=== PATIENT | female | born 1980 | race Native Hawaiian/Other Pacific Islander ===

== ENCOUNTER 2016-12-24 12:28 | Emergency (ER) | payer OTHER ==
[2016-12-24 13:52] VITALS: BP 110/69; PULSE 60; RESP 18; TEMP 97.5
--- NOTE | 2016-12-24 15:28 | ED ---
General Adult HPI - General Chief complaint: Headache Stated complaint: Headache, Facial Numbness Time Seen by Provider: 12/24/16 15:01 Source: patient, RN notes reviewed Mode of arrival: ambulatory Limitations: no limitations - History of Present Illness Initial comments: This is a 36-year-old female presents with a right-sided headache 7 days. Patient states for the entire seven-day she has been feeling a tingling sensation of the right side of her face and to the right arm and fingertips. Patient states this is not the worst headache of her life but she has not had paresthesias before. Patient denies any photophobia or eye pain but states there is a feeling of pressure in the right side face. Patient denies any fever /chills, congestion, otalgia or sore throat. Patient denies any visual changes. Patient also complaint of left-sided arm pain that has been going on for 3 days. Patient denies any injury to the left arm. Patient admits to some mild intermittent nausea. Patient states she has tried several [id number] medications but nothing has worked. Patient does not want any pain medication in the EC today. Patient denies any recent fever, chills, shortness breath, chest pain, abdominal pain, vomiting/diarrhea, back pain, numbness, weakness, dysphasia, dysphagia, hematuria, or any other complaints. - Related Data Home Medications Medication Instructions Recorded Confirmed No Known Home Medications [No 04/03/15 04/03/15 Known Home Medications] Allergies Allergy/AdvReac Type Severity Reaction Status Date / Time No Known Allergies Allergy Verified 12/24/16 13:53 Review of Systems ROS Statement: Those systems with pertinent positive or pertinent negative responses have been documented in the HPI. ROS Other: All systems not noted in ROS Statement are negative. Past Medical History Past Medical History: No Reported History History of Any Multi-Drug Resistant Organisms: None Reported Past Surgical History: No Surgical Hx Reported Past Psychological History: No Psychological Hx Reported Smoking Status: Never smoker Past Alcohol Use History: None Reported Past Drug Use History: None Reported General Exam - General Exam Comments Initial Comments: General: The patient is awake and alert, in no distress, and does not appear acutely ill. Eye: Pupils are equal, round and reactive to light, extra-ocular movements are intact. No nystagmus. There is normal conjunctiva bilaterally. No signs of icterus. No lid lag. Ears: TMs pink and pearly with intact cone of light bilaterally. Normal external ear canals Nose: Nasal turbinates pink and moist Mouth and throat: There are moist mucous membranes and no oral lesions. Neck: The neck is supple, there is no tenderness or JVD. Cardiovascular: There is a regular rate and rhythm. No murmur, rub or gallop is appreciated. Respiratory: Lungs are clear to auscultation, respirations are non-labored, breath sounds are equal. No wheezes, stridor, rales, or rhonchi. Gastrointestinal: Soft, non-distended, non-tender abdomen without masses or organomegaly noted. There is no rebound or guarding present. Bowel sounds are unremarkable. Musculoskeletal: Normal ROM, no tenderness. Strength 5/5. Sensation intact. Radial Pulses equal bilaterally 2+. Capillary refill is normal at less than 2 seconds. Neurological: A&O x 3. CN II-XII intact, There are no obvious motor or sensory deficits. Patient is able to detect light touch to the face equally on both sides with eyes closed. There is no facial drooping. Coordination appears grossly intact. Speech is normal. Patient is able to ambulate. Skin: Skin is warm and dry and no rashes or lesions are noted. Psychiatric: Cooperative, appropriate mood & affect, normal judgment. Limitations: no limitations Course Vital Signs 12/24/16 13:50 Temperature 97.5 F L Pulse Rate 60 Respiratory 18 Rate Blood Pressure 110/69 O2 Sat by Pulse 100 Oximetry EKG Findings - EKG Comments: EKG Findings:: An EKG was done at 1528. Ventricular rate of 55 bpm, NE interval of 142 QRS duration of 72, QTc of 415 showing sinus bradycardia. No acute ST changes. Medical Decision Making - Medical Decision Making This is a 36-year-old female presents with a headache 7 days. Patient states these are her normal headache symptoms except for paresthesias to the right side face and right arm. Patient states she's never had these paresthesias before. On physical exam A&O x 3. CN II-XII intact, There are no obvious motor or sensory deficits. Patient is able to detect light touch to the face equally on both sides with eyes closed. There is no facial drooping. Coordination appears grossly intact. Speech is normal. Patient is able to ambulate. Patient is answering questions appropriately and speaking without any problems. Patient is able to ambulate. Patient refused any pain medication in the EC today. An EKG was done at 1528. Ventricular rate of 55 bpm, NE interval of 142 QRS duration of 72, QTc of 415 showing sinus bradycardia. No acute ST changes. Patient is stable. Patient has no past medical history. Patient is not currently on any medication. I discussed the risks of radiation CT scan with the patient and that this is not likely necessary today. I discussed this case with attending physician Dr. Sebastian agrees that CT is not necessary today. Patient was receptive to this and comfortable with observation at this time. I discussed that patient is neurologically intact and the symptoms have been persistent for 7 days without any worsening weakness, dysphasia or dysphagia or any other neurologic symptoms. I discussed that there is a very low risk that this could be a stroke. Discussed that these symptoms are typical symptoms of a migraine headache. I discussed [id number] treatments. Discussed rest in a dark room and sleep, avoidance of electronics. I discussed worsening signs and symptoms. I discussed return parameters. Discussed that patient should follow up with PCP in one to 2 days or return to the EC for any worsening symptoms or for any further concerns. Patient was receptive to this plan and patient will be discharged home. I discussed his case with attending physician Dr. Sebastian who agrees the plan as stated above. Disposition Clinical Impression: Migraine, Paresthesias Disposition: HOME SELF-CARE Condition: Good Instructions: Migraine Headache (ED) Additional Instructions: Please rest in a dark room. Vital electronic semis [id number] Motrin and/ or Tylenol and Benadryl if needed. Please follow-up with family doctor in the next 2 days of symptoms have not improved. Please return to emergency room if the symptoms increase or worsen or for any other concerns. Referrals: Nikki Woodruff DO [Primary Care Provider] - 1-2 days Time of Disposition: 15:41
== END 2016-12-24 16:07 | disposition home or self-care (01) ==
LOC: EC 12:28
DX: G43.909 Migraine, unspecified, not intractable, without status migrainosus (principal); R20.2 Paresthesia of skin
CPT/HCPCS: 81025; 93005; 99284

== ENCOUNTER → 2018-11-04 | Outpatient (CLI) | payer BC ==
--- NOTE | 2018-11-04 12:00 | MM ---
Reason for exam: screening (asymptomatic). Baseline mammogram. History: Took hormonal contraceptives beginning at age 15. Physical Findings: Nurse did not find any significant physical abnormalities on exam. MG 3D Screening Mammo W/Cad Bilateral CC and MLO view(s) were taken. The breast tissue is heterogeneously dense. This may lower the sensitivity of mammography. No suspicious calcifications are seen. There is no discrete abnormality. These results were verbally communicated with the patient and result sheet given to the patient on 11/04/18. ASSESSMENT: Negative, BI-RAD 1 RECOMMENDATION: Routine screening mammogram of both breasts in 1 year.
== END | disposition home or self-care (01) ==
LOC: RADMAMWWP 10:15
PROVIDERS: ATTEND Family Medicine
DX: Z12.31 Encounter for screening mammogram for malignant neoplasm of breast (principal)
CPT/HCPCS: 77063; 77067

== ENCOUNTER → 2020-06-15 | Outpatient (CLI) | payer BC | END | disposition home or self-care (01) | LOC: LABWHC1 13:45 | PROVIDERS: ATTEND Internal Medicine | DX: Z20.828 Contact with and (suspected) exposure to other viral communicable diseases (principal) | CPT/HCPCS: U0003; C9803 ==

== ENCOUNTER 2020-07-15 10:22 | Emergency (ER) | payer BC ==
[2020-07-15 10:27] VITALS: RESP 18
[2020-07-15] MEDS ORDERED: SODIUM CHLORIDE 0.9% 1,000 ML IV STA ×2 (11:14)
[2020-07-15] MEDS ORDERED: ONDANSETRON 4 MG/2 ML VIAL IVP STA (11:14)
[2020-07-15] MEDS ORDERED: KETOROLAC 15 MG/ML 1 ML VIAL IVP STA (11:14)
[2020-07-15 12:03] LABS: Basophils % (A) 0 %; Eosinophils # (A) 0.1 k/uL (0-0.7); Eosinophils % (A) 1 %; HCT 38.5 % (34.0-46.0); HGB 12.5 gm/dL (11.4-16.0); Lymphocytes # (A) 1.9 k/uL (1.0-4.8); Lymphocytes % (A) 33 %; MCH 29.7 pg (25.0-35.0); MCHC 32.5 g/dL (31.0-37.0); MCV 91.3 fL (80.0-100.0); Mean Platelet Volume 7.8; Monocytes # (A) 0.3 k/uL (0-1.0); Monocytes % (A) 5 %; Neutrophils # (A) 3.4 k/uL (1.3-7.7); Neutrophils % (A) 59 %; Platelet Count 249 k/uL (150-450); RBC 4.22 m/uL (3.80-5.40); RDW 12.4 % (11.5-15.5); WBC 5.7 k/uL (3.8-10.6)
--- NOTE | 2020-07-15 12:12 | ED ---
Abdominal Pain HPI - General Chief Complaint: Abdominal Pain Stated Complaint: Abd Pain Time Seen by Provider: 07/15/20 10:51 Source: patient, RN notes reviewed, old records reviewed Mode of arrival: ambulatory Limitations: no limitations - History of Present Illness Initial Comments: Is a 40-year-old female presents return today with left-sided lower abdominal pain for the past 3 days. She concerned because her had similar pains like this before and he ended up having a perforated diverticulitis and colostomy. This happened within the most recent month. Patient states she did have a low-grade fever to yesterday. She has been taking milk of mag. Denies any fevers or chills at this time. - Related Data Previous Rx's Medication Instructions Recorded Cephalexin [Keflex] 500 mg PO Q8HR #21 cap 07/15/20 Allergies Allergy/AdvReac Type Severity Reaction Status Date / Time No Known Allergies Allergy Verified 07/15/20 10:27 Review of Systems ROS Statement: Those systems with pertinent positive or pertinent negative responses have been documented in the HPI. ROS Other: All systems not noted in ROS Statement are negative. Past Medical History Past Medical History: No Reported History History of Any Multi-Drug Resistant Organisms: None Reported Past Surgical History: No Surgical Hx Reported Past Psychological History: No Psychological Hx Reported Smoking Status: Never smoker Past Alcohol Use History: None Reported Past Drug Use History: None Reported General Exam - General Exam Comments Initial Comments: 40-year-old female. No distress Limitations: no limitations General appearance: alert, in no apparent distress Head exam: Present: atraumatic, normocephalic, normal inspection Eye exam: Present: normal appearance, PERRL, EOMI. Absent: scleral icterus, conjunctival injection, periorbital swelling ENT exam: Present: normal exam, mucous membranes moist Neck exam: Present: normal inspection. Absent: tenderness, meningismus, lymphadenopathy Respiratory exam: Present: normal lung sounds bilaterally. Absent: respiratory distress, wheezes, rales, rhonchi, stridor Cardiovascular Exam: Present: regular rate, normal rhythm, normal heart sounds. Absent: systolic murmur, diastolic murmur, rubs, gallop, clicks GI/Abdominal exam: Present: soft, tenderness (LLQ tenderness), normal bowel sounds. Absent: distended, guarding, rebound, rigid Back exam: Present: normal inspection Neurological exam: Present: alert, oriented X3, CN II-XII intact Psychiatric exam: Present: normal affect, normal mood Skin exam: Present: warm, dry, intact, normal color. Absent: rash Course Vital Signs 07/15/20 07/15/20 10:24 14:15 Temperature 98.6 F 97.8 F Pulse Rate 63 52 L Respiratory 18 18 Rate Blood Pressure 106/74 96/63 O2 Sat by Pulse 100 100 Oximetry Medical Decision Making - Medical Decision Making Patient. She's been having normal bowel movements. She states that she is concern for diverticulitis. Patient was given IV fluids labwork obtained. She has mild hematuria. Patient has no nausea or vomiting at this time. Her abdomen is slightly tender in left upper quadrant. Discussed her concern for diverticulitis as her recently had perfect diverticula. At this time Patient had a CT of pelvis which is negative for any acute process. Discussed treating the Patient for slight UTIs received she area and bacteria in the urine she is no acute flank pain at this time. I discussed the Patient needs to take antibiotic will follow up with urine culture. Discussed appropriate follow-up with PCP and continue stool softeners for bowel movement. - Lab Data Result diagrams: 07/15/20 11:43 07/15/20 11:43 Lab Results 07/15/20 07/15/20 07/15/20 Range/Units 11:43 11:43 11:43 WBC 5.7 (3.8-10.6) k/uL RBC 4.22 (3.80-5.40) m/uL Hgb 12.5 (11.4-16.0) gm/dL Hct 38.5 (34.0-46.0) % MCV 91.3 (80.0-100.0) fL MCH 29.7 (25.0-35.0) pg MCHC 32.5 (31.0-37.0) g/dL RDW 12.4 (11.5-15.5) % Plt Count 249 (150-450) k/uL Neutrophils % 59 % Lymphocytes % 33 % Monocytes % 5 % Eosinophils % 1 % Basophils % 0 % Neutrophils # 3.4 (1.3-7.7) k/uL Lymphocytes # 1.9 (1.0-4.8) k/uL Monocytes # 0.3 (0-1.0) k/uL Eosinophils # 0.1 (0-0.7) k/uL Basophils # 0.0 (0-0.2) k/uL PT 10.3 (9.0-12.0) sec INR 1.0 (<1.2) APTT 24.2 (22.0-30.0) sec Sodium (137-145) mmol/L Potassium (3.5-5.1) mmol/L Chloride (98-107) mmol/L Carbon Dioxide (22-30) mmol/L Anion Gap mmol/L BUN (7-17) mg/dL Creatinine (0.52-1.04) mg/dL Est GFR (CKD-EPI)AfAm (>60 ml/min/1.73 sqM) Est GFR (CKD-EPI)NonAf (>60 ml/min/1.73 sqM) Glucose (74-99) mg/dL Plasma Lactic Acid [place] (0.7-2.0) mmol/L Calcium (8.4-10.2) mg/dL Total Bilirubin (0.2-1.3) mg/dL AST (14-36) U/L ALT (4-34) U/L Alkaline Phosphatase (38-126) U/L Total Protein (6.3-8.2) g/dL Albumin (3.5-5.0) g/dL Amylase (30-110) U/L Lipase (23-300) U/L Urine Color Yellow Urine Appearance Cloudy H (Clear) Urine pH 9.0 H (5.0-8.0) Ur Specific [place] 1.000 L (1.001-1.035) Urine Protein 1+ H (Negative) Urine Glucose (UA) Negative (Negative) Urine Ketones Negative (Negative) Urine Blood Negative (Negative) Urine Nitrite Negative (Negative) Urine Bilirubin Negative (Negative) Urine Urobilinogen <2.0 (<2.0) mg/dL Ur Leukocyte Esterase Negative (Negative) Urine RBC 7 H (0-5) /hpf Urine WBC <1 (0-5) /hpf Ur Squamous Epith Cells 2 (0-4) /hpf Amorphous Sediment Few H (None) /hpf Urine Bacteria Rare H (None) /hpf Urine Mucus Few H (None) /hpf 07/15/20 07/15/20 Range/Units 11:43 11:43 WBC (3.8-10.6) k/uL RBC (3.80-5.40) m/uL Hgb (11.4-16.0) gm/dL Hct (34.0-46.0) % MCV (80.0-100.0) fL MCH (25.0-35.0) pg MCHC (31.0-37.0) g/dL RDW (11.5-15.5) % Plt Count (150-450) k/uL Neutrophils % % Lymphocytes % % Monocytes % % Eosinophils % % Basophils % % Neutrophils # (1.3-7.7) k/uL Lymphocytes # (1.0-4.8) k/uL Monocytes # (0-1.0) k/uL Eosinophils # (0-0.7) k/uL Basophils # (0-0.2) k/uL PT (9.0-12.0) sec INR (<1.2) APTT (22.0-30.0) sec Sodium 137 (137-145) mmol/L Potassium 4.3 (3.5-5.1) mmol/L Chloride 105 (98-107) mmol/L Carbon Dioxide 25 (22-30) mmol/L Anion Gap 7 mmol/L BUN 15 (7-17) mg/dL Creatinine 0.86 (0.52-1.04) mg/dL Est GFR (CKD-EPI)AfAm >90 (>60 ml/min/1.73 sqM) Est GFR (CKD-EPI)NonAf 84 (>60 ml/min/1.73 sqM) Glucose 87 (74-99) mg/dL Plasma Lactic Acid [place] 0.7 (0.7-2.0) mmol/L Calcium 9.6 (8.4-10.2) mg/dL Total Bilirubin 0.5 (0.2-1.3) mg/dL AST 20 (14-36) U/L ALT 10 (4-34) U/L Alkaline Phosphatase 58 (38-126) U/L Total Protein 6.8 (6.3-8.2) g/dL Albumin 4.0 (3.5-5.0) g/dL Amylase 75 (30-110) U/L Lipase 96 (23-300) U/L Urine Color Urine Appearance (Clear) Urine pH (5.0-8.0) Ur Specific [place] (1.001-1.035) Urine Protein (Negative) Urine Glucose (UA) (Negative) Urine Ketones (Negative) Urine Blood (Negative) Urine Nitrite (Negative) Urine Bilirubin (Negative) Urine Urobilinogen (<2.0) mg/dL Ur Leukocyte Esterase (Negative) Urine RBC (0-5) /hpf Urine WBC (0-5) /hpf Ur Squamous Epith Cells (0-4) /hpf Amorphous Sediment (None) /hpf Urine Bacteria (None) /hpf Urine Mucus (None) /hpf - Radiology Data Radiology results: report reviewed No significant acute findings seen for patients chronicle symptoms of left lower quadrant pain Disposition Clinical Impression: Abdominal pain, Hematuria Disposition: HOME SELF-CARE Condition: Good Instructions (If sedation given, give patient instructions): Abdominal Pain (ED) Additional Instructions: Use Medications prescribed. Follow-up with PCP. Return to the ED if any alarming signs or symptoms occur. Prescriptions: Cephalexin [Keflex] 500 mg PO Q8HR #21 cap Is patient prescribed a controlled substance at d/c from ED?: No Referrals: Roxane Rollins MD [Primary Care Provider] - 1-2 days Time of Disposition: 13:40
[2020-07-15 12:15] LABS: Partial Thromboplastin Time 24.2 sec (22.0-30.0); Prothrombin Time 10.3 sec (9.0-12.0)
[2020-07-15 12:17] LABS: ALT 10 U/L (4-34); AST 20 U/L (14-36); African American GFR (CKD) >90 (>60 ml/min/1.73 sqM); Alkaline Phosphatase 58 U/L (38-126); Amylase 75 U/L (30-110); Anion Gap 7 mmol/L; Blood Urea Nitrogen 15 mg/dL (7-17); Calcium 9.6 mg/dL (8.4-10.2); Carbon Dioxide 25 mmol/L (22-30); Chloride 105 mmol/L (98-107); Glucose 87 mg/dL (74-99); Non-African American GFR(CKD) 84 (>60 ml/min/1.73 sqM); Potassium 4.3 mmol/L (3.5-5.1); Sodium 137 mmol/L (137-145); Total Bilirubin 0.5 mg/dL (0.2-1.3); Total Protein 6.8 g/dL (6.3-8.2)
[2020-07-15 12:18] LABS: Amorphous Sediment,Urine Few /hpf; Bacteria,Urine Rare /hpf; Mucus,Urine Few /hpf; RBC,Urine 7 /hpf (0-5); Squamous Epithelial Cell,Urine 2 /hpf (0-4); WBC,Urine <1 /hpf (0-5)
--- NOTE | 2020-07-15 12:31 | CT ---
EXAMINATION TYPE: CT abdomen pelvis w con DATE OF EXAM: 07/15/2020 HISTORY: Left lower abdominal pain CT DLP: 550.6mGycm Automated Exposure Control for Dose Reduction was Utilized. CONTRAST: CT scan of the abdomen and pelvis is performed without oral but with IV Contrast, patient injected wi th 100 mL of Isovue 300. COMPARISON: CT abdomen and pelvis June 29, 2011 FINDINGS: LUNG BASES: New opacity left basilar linear scarring and/or atelectasis. LIVER/GB: No significant abnormality is appreciated. PANCREAS: Some generalized prominence of the distal pancreatic body and tail axial image 17 not signi ficantly changed from 2011 CT presumed normal variant. SPLEEN: No significant abnormality is seen. ADRENALS: No significant abnormality is seen. KIDNEYS: Delayed phase images either not performed are not sent to PACS. No concerning renal masses o r hydronephrosis noted bilaterally. BOWEL: Suboptimal evaluation of bowel without enteric contrast. No suspicious small or large bowel di latation is present. No significant colonic diverticulosis or CT evidence for acute diverticulitis. UTERUS/ADNEXA: Heterogeneous somewhat prominent retroverted uterus. Ovoid hypodense area towards the fundus axial image 55 could reflect trapped fluid in the endometrial canal or poorly defined intramur al fibroid. Correlate clinically. Rim-enhancing 1.5 cm lesion right ovary or adnexa could reflect cor pus luteal cyst from recent ovulation. Slightly prominent bilateral draining ovarian veins noted whic h would correlate. LYMPH NODES: No greater than 1cm abdominal or pelvic lymph nodes are appreciated. OSSEOUS STRUCTURES: No significant abnormality is seen. OTHER: No significant additional abnormality is seen. IMPRESSION: No significant new or acute finding is clearly seen to account for patient's clinical sym ptoms of left lower quadrant pain.
[2020-07-15 12:34] LABS: Appearance,Urine Cloudy (Clear); Bilirubin,Urine Negative (Negative); Blood,Urine Negative (Negative); Color,Urine Yellow; Glucose,Urine (UA) Negative (Negative); Ketones,Urine Negative (Negative); Leukocyte Esterase,Urine Negative (Negative); Protein,Urine 1+ (Negative)
[2020-07-15 12:35] LABS: Nitrite,Urine Negative (Negative); Urobilinogen,Urine <2.0 mg/dL (<2.0)
[2020-07-15 14:16] VITALS: BP 96/63; PULSE 52; TEMP 97.8
== END 2020-07-15 14:16 | disposition home or self-care (01) ==
LOC: EC 10:22
DX: N39.0 Urinary tract infection, site not specified (principal)
CPT/HCPCS: 36415; 80053; 82150; 83605; 83690; 85025; 85610; 85730; 81001; 87086; 74177; 99284; 96374; 96375; 96361 ×2; J2405; J1885; Q9967

== ENCOUNTER → 2020-10-20 | Outpatient (CLI) | payer BC | END | disposition home or self-care (01) | LOC: LABWHC1 15:41 | PROVIDERS: ATTEND Internal Medicine | DX: Z20.828 Contact with and (suspected) exposure to other viral communicable diseases (principal) | CPT/HCPCS: U0003; C9803 ==

== ENCOUNTER → 2020-11-22 | Outpatient (CLI) | payer BC ==
--- NOTE | 2020-11-27 09:08 | MM ---
Reason for exam: screening (asymptomatic). Last mammogram was performed 2 years and 1 month ago. History: Took hormonal contraceptives beginning at age 15. Physical Findings: A clinical breast exam by your physician is recommended on an annual basis and results should be correlated with mammographic findings. MG 3D Screening Mammo W/Cad Bilateral CC and MLO view(s) were taken. Prior study comparison: November 04, 2018, bilateral MG 3d screening mammo w/cad. The breast tissue is heterogeneously dense. This may lower the sensitivity of mammography. Asymmetric breast tissue left inner breast 9 o'clock. This finding is changed when compared with previous exams. ASSESSMENT: Incomplete: need additional imaging evaluation, BI-RAD 0 RECOMMENDATION: Ultrasound of the left breast. [facility] will attempt to contact patient to return for ultrasound.
== END | disposition home or self-care (01) ==
LOC: RADMAMWWP 09:53
PROVIDERS: ATTEND Internal Medicine
DX: Z12.31 Encounter for screening mammogram for malignant neoplasm of breast (principal)
CPT/HCPCS: 77063; 77067

== ENCOUNTER → 2020-11-29 | Outpatient (CLI) | payer BC ==
--- NOTE | 2020-12-04 10:05 | USB ---
Reason for exam: additional evaluation requested from abnormal screening. History: Took hormonal contraceptives beginning at age 15. Physical Findings: Nurse did not find any significant physical abnormalities on exam. US Breast Workup Limited LT Left limited breast ultrasound including focal area of concern, retroareolar and axilla demonstrates a 10 x 6 x 9mm lobular, cystic lesion at the posterior nipple, benign, but does not correspond to the mammographic density, located more medially. Additional views recommended. Scaned 9-12 o'clock. These results were verbally communicated with the patient and result sheet given to the patient on 11/29/20. ASSESSMENT: Incomplete: need additional imaging evaluation, BI-RAD 0 RECOMMENDATION: Special view mammogram of the left breast. (3D)
--- NOTE | 2020-12-04 10:08 | MM ---
Reason for exam: additional evaluation requested from abnormal screening. Last mammogram was performed less than 1 month ago. History: Took hormonal contraceptives beginning at age 15. MG 3D Work Up W/Cad LT Spot compression CC, spot compression MLO, and LM view(s) were taken of the left breast. Prior study comparison: November 22, 2020, bilateral MG 3d screening mammo w/cad. November 04, 2018, bilateral MG 3d screening mammo w/cad. The breast tissue is heterogeneously dense. This may lower the sensitivity of mammography. Spot 3D CC shows persistent dense tissues medially. No persisting abnormality on the other views. Given negative ultrasound, 6 month follow up mammogram recommended. These results were verbally communicated with the patient and result sheet given to the patient on 11/29/20. ASSESSMENT: Probably benign, BI-RAD 3 RECOMMENDATION: Follow-up diagnostic mammogram of the left breast in 6 months.
== END | disposition home or self-care (01) ==
LOC: RADUSWWP 12:28
PROVIDERS: ATTEND Internal Medicine
DX: R92.8 Other abnormal and inconclusive findings on diagnostic imaging of breast (principal)
CPT/HCPCS: 77061; 77065

== ENCOUNTER → 2021-05-30 | Outpatient (CLI) | payer BC ==
--- NOTE | 2021-06-01 09:41 | MM ---
Reason for exam: follow-up at short interval from prior study. Last mammogram was performed 6 months ago. History: Took hormonal contraceptives beginning at age 15. Physical Findings: Nurse did not find any significant physical abnormalities on exam. MG 3D Diag Mammo W/Cad LT CC and MLO view(s) were taken of the left breast. Prior study comparison: November 29, 2020, left breast MG 3d work up w/cad LT. November 22, 2020, bilateral MG 3d screening mammo w/cad. The breast tissue is heterogeneously dense. This may lower the sensitivity of mammography. 10mm nodule 12-2 o'clock anterior position zone A, retroareolar. No significant new findings when compared with previous films. These results were verbally communicated with the patient and result sheet given to the patient on 05/30/21. ASSESSMENT: Incomplete: need additional imaging evaluation, BI-RAD 0 RECOMMENDATION: Ultrasound of the left breast. (retroareolar lump/pain)
--- NOTE | 2021-06-01 09:44 | USB ---
Reason for exam: additional evaluation requested from abnormal screening. History: Took hormonal contraceptives beginning at age 15. US Breast Limited LT Left limited breast ultrasound including focal area of concern, retroareolar and axilla demonstrates a 0.8 x 1.1 x 0.7cm oval, cystic lesion at 12 o'clock, simple benign appearing, corresponds to mammogram, a 0.4 x 0.3 x 0.3cm oval, cystic lesion at 6 o'clock palpable, simple benign appearing, corresponds to mammogram and a 1.1 x 0.9 x 0.9cm lymph node at the axilla. These results were verbally communicated with the patient and result sheet given to the patient on 05/30/21. ASSESSMENT: Benign, BI-RAD 2 RECOMMENDATION: Return to routine screening mammogram schedule for both breasts. Back on schedule for October 2021.
== END ==
LOC: RADMAMWWP 14:19
PROVIDERS: ATTEND Internal Medicine
DX: N63.20 Unspecified lump in the left breast, unspecified quadrant (principal); R92.8 Other abnormal and inconclusive findings on diagnostic imaging of breast
CPT/HCPCS: 77061; 77065

== ENCOUNTER 2021-08-24 09:56 | Emergency (ER) | payer BC ==
[2021-08-24 10:02] VITALS: BP 122/78; PULSE 77; RESP 18; TEMP 98.5
[2021-08-24] MEDS ORDERED: IBUPROFEN 800 MG TAB PO STA (10:45)
--- NOTE | 2021-08-24 12:09 | ED ---
ENT HPI - General Chief complaint: ENT Stated complaint: ear pain Time Seen by Provider: 08/24/21 10:13 Source: patient, RN notes reviewed Mode of arrival: ambulatory Limitations: no limitations - History of Present Illness Initial comments: Patient is a 41-year-old female that presents to emergency department complaining of a sore throat and left-sided ear pain. She notes this is been going on for the past several days. She denied getting tested for Covid. She denied any fevers. She was otherwise well-appearing 41-year-old female patient notes that she does clench her jaw when she sleeps and that does cause some muscle tension and left side of her face. She denied chest pain first breath headache nausea vomiting diarrhea constipation fever fatigue chills. - Related Data Previous Rx's Medication Instructions Recorded Cephalexin [Keflex] 500 mg PO Q8HR #21 cap 07/15/20 Allergies Allergy/AdvReac Type Severity Reaction Status Date / Time No Known Allergies Allergy Verified 08/24/21 10:00 Review of Systems ROS Statement: Those systems with pertinent positive or pertinent negative responses have been documented in the HPI. ROS Other: All systems not noted in ROS Statement are negative. Past Medical History Past Medical History: No Reported History History of Any Multi-Drug Resistant Organisms: None Reported Past Surgical History: No Surgical Hx Reported Past Psychological History: No Psychological Hx Reported Smoking Status: Never smoker Past Alcohol Use History: None Reported Past Drug Use History: None Reported General Exam Limitations: no limitations General appearance: alert, in no apparent distress Head exam: Present: atraumatic, normocephalic, normal inspection Eye exam: Present: normal appearance, PERRL, EOMI. Absent: scleral icterus, conjunctival injection, periorbital swelling ENT exam: Present: normal exam, normal oropharynx, mucous membranes moist, TM's normal bilaterally Neck exam: Present: normal inspection. Absent: tenderness, lymphadenopathy Respiratory exam: Present: normal lung sounds bilaterally. Absent: respiratory distress, wheezes, rales, rhonchi, stridor Cardiovascular Exam: Present: regular rate, normal rhythm, normal heart sounds. Absent: systolic murmur, diastolic murmur, rubs, gallop, clicks Extremities exam: Present: normal inspection, full ROM, normal capillary refill. Absent: tenderness, pedal edema, joint swelling, calf tenderness Neurological exam: Present: alert, oriented X3 Psychiatric exam: Present: normal affect, normal mood Skin exam: Present: warm, dry, intact, normal color. Absent: rash Course Vital Signs 08/24/21 10:00 Temperature 98.5 F Pulse Rate 77 Respiratory 18 Rate Blood Pressure 122/78 O2 Sat by Pulse 100 Oximetry Medical Decision Making - Medical Decision Making 41-year-old female complaining of throat pain with radiation left ear. Covid test, strep test ordered. Covid and strep test both negative. Patient most likely has viral pharyngitis. Case discussed with Dr. Newberry, patient discharge home in stable condition with follow-up to primary care. - Lab Data Lab Results 08/24/21 08/24/21 Range/Units 10:50 10:50 Coronavirus (PCR) Not Detected (Not Detectd) Group A Strep Rapid Negative (Negative) Disposition Clinical Impression: Postnasal drip, Acute viral pharyngitis Disposition: HOME SELF-CARE Condition: Stable Instructions (If sedation given, give patient instructions): Pharyngitis (ED) Additional Instructions: Please return to the Emergency Department if symptoms worsen or any other concerns Follow-up with primary care 1-2 days. Take Tylenol and Motrin as day for pain. Can use Flonase for postnasal drip. . Is patient prescribed a controlled substance at d/c from ED?: No Referrals: Roxane Rollins MD [Primary Care Provider] - 1-2 days Time of Disposition: 12:08
== END 2021-08-24 12:23 | disposition home or self-care (01) ==
LOC: EC 09:56
DX: J02.8 Acute pharyngitis due to other specified organisms (principal); B97.89 Other viral agents as the cause of diseases classified elsewhere; R09.82 Postnasal drip; H92.02 Otalgia, left ear; Z20.822 Contact with and (suspected) exposure to COVID-19
CPT/HCPCS: 87081; 87430; 87635; 99283

== ENCOUNTER → 2021-12-24 | Outpatient (CLI) | payer BC ==
--- NOTE | 2021-12-25 10:07 | MM ---
Reason for exam: screening (asymptomatic). Last mammogram was performed 7 months ago. History: Took hormonal contraceptives beginning at age 15. Physical Findings: A clinical breast exam by your physician is recommended on an annual basis and results should be correlated with mammographic findings. MG 3D Screening Mammo W/Cad Bilateral CC and MLO view(s) were taken. Prior study comparison: May 30, 2021, left breast MG 3d diag mammo w/cad LT. November 29, 2020, left breast MG 3d work up w/cad LT. The breast tissue is heterogeneously dense. This may lower the sensitivity of mammography. There is no discrete abnormality. No significant changes when compared with prior studies. ASSESSMENT: Negative, BI-RAD 1 RECOMMENDATION: Routine screening mammogram of both breasts in 1 year.
== END | disposition home or self-care (01) ==
LOC: RADMAMWWP 09:06
PROVIDERS: ATTEND Internal Medicine
DX: Z12.31 Encounter for screening mammogram for malignant neoplasm of breast (principal)
CPT/HCPCS: 77063; 77067

== ENCOUNTER → 2022-10-11 | Outpatient (CLI) | payer BC ==
--- NOTE | 2022-10-30 04:43 | EM ---
EVENT MONITOR The patient had several recordings. Some of these were auto triggered, some were triggered by the patient when she felt lightheaded or dizzy. Almost all rhythm strips demonstrate sinus rhythm with some artifact. When she complained of lightheadedness or dizziness, the patient was in sinus rhythm. There were rare isolated PVCs. There was some artifact. FINAL IMPRESSION: Predominant rhythm is sinus. No correlation of any arrhythmia when the patient felt fluttering sensation in the chest. No evidence of any atrial fibrillation. MMODL / IJN: [id number] /
== END | disposition home or self-care (01) ==
LOC: RADECHMAIN 07:31
PROVIDERS: ATTEND Internal Medicine
DX: R00.2 Palpitations (principal)
CPT/HCPCS: 93270

== ENCOUNTER → 2022-11-13 | Outpatient (CLI) | payer BC ==
[2022-11-13 14:28] LABS: HCT 37.9 % (37.2-46.3); MCH 29.5 pg (27.0-32.0); MCHC 31.7 g/dL (32.0-37.0); MCV 93.1 fL (80.0-97.0); Mean Platelet Volume 10.9 fL (9.5-12.2); NRBC Per 100 WBC 0 /100 WBCS (0.0-0.0); Platelet Count 308 X 10*3/uL (140-440); RBC 4.07 X 10*6/uL (4.10-5.20); RDW 12.2 % (11.5-14.5); WBC 4.65 X 10*3/uL (4.50-10.00)
[2022-11-13 14:54] LABS: Chol/HDL Ratio 4.06 Ratio; LDL Cholesterol,Calculated 114.1 mg/dL (0.0-131.0)
[2022-11-14 01:03] LABS: ALT 13 U/L (8-44); AST 18 U/L (13-35); African American GFR (CKD) 94.2 (60.0-200.0); Albumin 4.3 g/dL (3.8-4.9); Albumin/Globulin Ratio 1.67 (1.60-3.17); Alkaline Phosphatase 77 U/L (41-126); BUN/Creat Ratio 14.06 Ratio (12.00-20.00); Blood Urea Nitrogen 12.2 mg/dL (9.0-27.0); Calcium 9.3 mg/dL (8.7-10.3); Carbon Dioxide 22.8 mmol/L (20.0-27.5); Chloride 107 mmol/L (96-109); Globulin 2.6 g/dL (1.6-3.3); Glucose 84 mg/dL (70-110); Non-African American GFR(CKD) 81.2 (60.0-200.0); Potassium 4.5 mmol/L (3.5-5.5); Sodium 139 mmol/L (135-145); Total Protein 6.9 g/dL (6.2-8.2)
== END | disposition home or self-care (01) ==
LOC: LABWHC1 08:19
PROVIDERS: ATTEND Internal Medicine
DX: Z00.01 Encounter for general adult medical examination with abnormal findings (principal); E55.9 Vitamin D deficiency, unspecified; E78.00 Pure hypercholesterolemia, unspecified; R53.83 Other fatigue
CPT/HCPCS: 36415; 80053; 80061; 82306; 83036; 84443; 85027

== ENCOUNTER → 2022-12-25 | Outpatient (CLI) | payer BC ==
--- NOTE | 2022-12-26 21:25 | MM ---
Reason for Exam: Screening (asymptomatic). Last screening mammogram was performed 12 month(s) ago. Patient History: Menarche at age 10. First Full-Term at age 18. Hormonal Contraceptives, from age 15 until age 29. Risk Values: Tammie 5 year model risk: 0.7%. NCI Lifetime model risk: 8.7%. Prior Study Comparison: 11/29/2020 Left Diagnostic Mammogram, [facility]. 05/30/2021 Left Diagnostic Mammogram, [facility]. 12/24/2021 Bilateral Screening Mammogram, [facility]. Tissue Density: The breast tissue is heterogeneously dense. This may lower the sensitivity of mammography. Findings: Analyzed By CAD. Possible underlying distortion or asymmetric density central left cc view at a middle depth. However, there is no clear correlate on the MLO view. Findings may represent superimposition shadow but further evaluation is recommended. Otherwise, no significant change. Overall Assessment: Incomplete: need additional imaging evaluation, BI-RAD 0 Management: Special View Mammogram of the left breast. Including spot 3-D CC, 3-D CC rolled lateral, and 3-D lateral views. Targeted left breast ultrasound if any persisting abnormality. [facility] will attempt to contact patient to return for supplemental views and ultrasound if indicated. Electronically signed and approved by: Delmi Carrera M.D. Radiologist
== END | disposition home or self-care (01) ==
LOC: RADMAMWWP 07:51
PROVIDERS: ATTEND Internal Medicine
DX: Z12.31 Encounter for screening mammogram for malignant neoplasm of breast (principal)
CPT/HCPCS: 77063; 77067

== ENCOUNTER → 2022-12-30 | Outpatient (CLI) | payer BC ==
--- NOTE | 2022-12-30 07:41 | MM ---
Reason for Exam: Additional evaluation requested from prior study. Last screening mammogram was performed less than 1 month ago. Patient History: Menarche at age 10. First Full-Term at age 18. Hormonal Contraceptives, from age 15 until age 29. Risk Values: Tammie 5 year model risk: 0.7%. NCI Lifetime model risk: 8.7%. Prior Study Comparison: 05/30/2021 Left Diagnostic Mammogram, [facility]. 12/24/2021 Bilateral Screening Mammogram, [facility]. 12/25/2022 Bilateral MG 3D screening mammo w/cad, [facility]. Tissue Density: Left: The breast tissue is heterogeneously dense. This may lower the sensitivity of mammography. Findings: Analyzed By CAD. Asymmetry previously demonstrated on the central left cc view middle depth does not persist with compression. Stable benign round calcification. Overall Assessment: Benign, BI-RAD 2 Management: Screening Mammogram of both breasts in 1 year. A clinical breast exam by your physician is recommended on an annual basis and results should be correlated with mammographic findings. This exam should not preclude additional follow-up of suspicious palpable abnormalities. Results were given to the patient verbally at the time of exam. Electronically signed and approved by: Hernandez Scott D.O.
== END | disposition home or self-care (01) ==
LOC: RADMAMWWP 07:09
PROVIDERS: ATTEND Internal Medicine
DX: R92.8 Other abnormal and inconclusive findings on diagnostic imaging of breast (principal)
CPT/HCPCS: 77061; 77065

== ENCOUNTER → 2023-02-12 | Outpatient (CLI) | payer BC ==
--- NOTE | 2023-02-13 07:32 | MR ---
EXAMINATION TYPE: MR brain wo/w con DATE OF EXAM: 02/12/2023 COMPARISON: CT brain April 03, 2015 HISTORY: Change in migraines, blurry vision, dizziness, weakness/numbness on right side. TECHNIQUE: Multiplanar, multisequence images of the brain and brainstem is performed without and with IV contras t, utilizing 6 mL intravenous Gadavist . FINDINGS: Diffusion weighted images demonstrate no evidence of a recent infarct or other diffusion ab normality. There is no extra-axial fluid collection or significant white matter signal abnormality. The ventricular system and cisternal spaces are normal in size and appearance. The brain volume is age appropriate. Midline structures demonstrate normal morphology. The craniocervical junction appears within normal limits. Post contrast images demonstrate no abnormal enhancement. The dural venous sinuses appear pa tent. The visualized sinuses are clear and the globes are intact. IMPRESSION: Unremarkable study.
== END | disposition home or self-care (01) ==
LOC: RADMRIMAIN 16:33
PROVIDERS: ATTEND Psychiatry & Neurology Neurology
DX: G43.909 Migraine, unspecified, not intractable, without status migrainosus (principal)
CPT/HCPCS: 70553; A9585

== ENCOUNTER → 2024-01-03 | Outpatient (CLI) | payer BC ==
[2024-01-04 06:07] LABS: Basophils # (A) 0.02 X 10*3/uL (0.00-0.10); Basophils % (A) 0.3 %; Eosinophils # (A) 0.07 X 10*3/uL (0.04-0.35); HCT 38.5 % (37.2-46.3); HGB 12.9 g/dL (12.0-15.0); Lymphocytes # (A) 2.36 X 10*3/uL (0.90-5.00); Lymphocytes % (A) 33.2 %; MCH 29.9 pg (27.0-32.0); MCHC 33.5 g/dL (32.0-37.0); MCV 89.3 FL (80.0-97.0); Mean Platelet Volume 11.1 FL (9.5-12.2); Monocytes # (A) 0.63 X 10*3/uL (0.20-1.00); Monocytes % (A) 8.9 %; NRBC Per 100 WBC 0 X 10*3/uL (0.00-0.01); Neutrophils # (A) 3.99 X 10*3/uL (1.80-7.70); Platelet Count 289 X 10*3/uL (140-440); RBC 4.31 X 10*6/uL (4.10-5.20); RDW 12.2 % (11.5-14.5); WBC 7.11 X 10*3/uL (4.50-10.00)
[2024-01-04 09:18] LABS: ALT 11 U/L (8-44); AST 14 U/L (13-35); Albumin 4.3 g/dL (3.8-4.9); Albumin/Globulin Ratio 1.59 Ratio (1.60-3.17); Alkaline Phosphatase 80 U/L (41-126); Blood Urea Nitrogen 16.5 mg/dL (9.0-27.0); Calcium 9.2 mg/dL (8.7-10.3); Carbon Dioxide 21.5 mmol/L (21.6-31.8); Chloride 104 mmol/L (96-109); Chol/HDL Ratio 4.43 Ratio; Globulin 2.7 g/dL (1.6-3.3); Glucose 84 mg/dL (70-110); LDL Cholesterol,Calculated 139.6 mg/dL (0.0-131.0); Potassium 4.8 mmol/L (3.5-5.5); Sodium 136 mmol/L (135-145); Total Bilirubin 0.6 mg/dL (0.3-1.2)
== END | disposition home or self-care (01) ==
LOC: LABWHC1 10:25
PROVIDERS: ATTEND Internal Medicine
DX: Z00.01 Encounter for general adult medical examination with abnormal findings (principal); E78.00 Pure hypercholesterolemia, unspecified; E55.9 Vitamin D deficiency, unspecified; R53.83 Other fatigue
CPT/HCPCS: 36415; 80053; 80061; 82306; 84443; 85025

== ENCOUNTER → 2024-01-07 | Outpatient (CLI) | payer BC ==
--- NOTE | 2024-01-07 08:09 | MM ---
Reason for Exam: Follow-up at short interval from prior study. Last mammogram was performed 1 year(s) and 1 month(s) ago. Patient History: Menarche at age 10. First Full-Term at age 18. Hormonal Contraceptives, from age 15 until age 29. Risk Values: Tammie 5 year model risk: 0.7%. NCI Lifetime model risk: 8.6%. Tissue Density: The breast tissue is heterogeneously dense. This may lower the sensitivity of mammography. Findings: Analyzed By CAD. Stable fibroglandular tissue bilaterally. No new suspicious masses, calcifications or distortions. Overall Assessment: Negative, BI-RAD 1 Management: Screening Mammogram of both breasts in 1 year. Results were given to the patient verbally at the time of exam. Patient should continue monthly self-breast exams. A clinical breast exam by your physician is recommended on an annual basis. This exam should not preclude additional follow-up of suspicious palpable abnormalities. Note on Tammie scores and lifetime risk: 1. A Tammie score greater than 3% is considered moderate risk. If this is the case, consider specialist referral to assess eligibility for a risk reducing agent. 2. If overall lifetime risk for the development of breast cancer is 20% or higher, the patient may qualify for future screening with alternating mammogram and breast MRI. Electronically signed and approved by: Frankie Ching DO
== END | disposition home or self-care (01) ==
LOC: RADMAMWWP 07:37
PROVIDERS: ATTEND Internal Medicine
DX: R92.333 Mammographic heterogeneous density, bilateral breasts (principal)
CPT/HCPCS: 77062; 77066